=== PATIENT | female | born 1995 | race Caucasian/White ===

== ENCOUNTER 2018-08-25 12:57 | Inpatient (IN) | payer MEDICAID ==
[~2018-08-25] VITALS: Ht 167.6 cm; Wt 86.2 kg
[~2018-08-25 12:57] MED LIST: PREN-127 PO
[2018-08-29] MEDS ORDERED: FAMOTIDINE(*) 20MG/50ML PREMIX 50 ML IVPB PRN (05:36)
[2018-08-29] MEDS ORDERED: OXYTOCIN 30 UNIT/NS 500 ML 500 ML IV PRN ×2 (05:36)
[2018-08-29] MEDS ORDERED: LIDOCAINE/SOD BICARB 8.4% SYR SC PRN (05:40)
[2018-08-29] MEDS ORDERED: TERBUTALINE SULF 1 MG/ML VIAL SUBQ PRN (05:40)
[2018-08-29] MEDS ORDERED: CALCIUM CARBONATE 500 MG CHEW PO PRN (05:40)
[2018-08-29] MEDS ORDERED: ONDANSETRON 4 MG/2 ML VIAL IVP PRN (05:40)
[2018-08-29] MEDS ORDERED: cefOXitin/DEX(*) 2GM/50ML PREM 50 ML IVPB PRN (05:40)
[2018-08-29] MEDS ORDERED: ACETAMINOPHEN 500 MG TAB PO PRN (05:40)
[2018-08-29] MEDS ORDERED: METOCLOPRAMIDE 10 MG/2 ML SDV IVP PRN (05:40)
[2018-08-29] MEDS ORDERED: LIDOCAINE 1% LOCAL 300 MG/30ML INJ PRN (05:40)
[2018-08-29 06:30] VITALS: BP 143/87; Ht 167.6 cm; Wt 86.2 kg
[2018-08-29 06:39] LABS: PLATELET COUNT, AUTOMATED 304 K/uL (150-450)
[2018-08-29] MEDS: LR(*) 1000 ML BAG 1,000 ML IV SCH ×2 (06:40→11:53)
--- NOTE | 2018-08-29 08:42 | History & Physical ---
History of Present Illness Age of Patient: 22 : 1 Para or TPAL: 0 EDC per LMP: Aug 26, 2018 Estimated Gestational Age: 40.3 Chief Complaint IOL History of Present Illness Presents after her due date for planned IOL secondary to favorable cervix and post dates. Labor has been uncomplicated to date and she is healthy. No current issues. Past Medical, Surgical, Family and Obstetric Histories reviewed. Please see ACOG chart. History Allergies: Coded Allergies: No Known Drug Allergies (Unverified , 08/29/18) Med Rec Home Meds Reported Medications Vits W-Ca,Fe,Fa(<1MG) ( VITAMINS) 1 Each Tablet, 1 EACH PO DAILY, TAB 08/04/18 Review of Systems All Systems Reviewed/Normal: Yes, Except as Noted Exam General Exam Vital Signs Vital Signs Date Time Temp Pulse Resp B/P (MAP) Pulse Ox O2 Delivery O2 Flow Rate FiO2 08/29/18 06:30 98.2 100 16 143/87 (105) 95 Room Air General Apperance: Alert/Awake/No Acute Distress Neuro: No Gross deficits Cardiovascular: Regular Rate and Rhythm Respiratory: No Respiratory Distress Abdomen: Soft, Non-Tender, Non-Distended, Gravid - Non-Tender Integumentary: Skin Intact without Lesions or Rash Psychological: Alert & Oriented X3, Appropriate Mood & Affect Cervical Dialation: 3 Cervical Effacement (%): 80 Cervical Consistency: Moderate Cervical Position: Anterior Station: -2 Presentation: Vertex Fetus Heart Tone Variabilty: Moderate FHT Accelerations: 15X15 FHT Category: I Medical Decision Making Data Points Result Diagram: 08/29/18 0628 VTE Prophylasis: Adult Deep Vein Thrombosis/Pulmonary: No Pharmacological Contraindicati: Pt at Low Risk for VTE Mechanical Contraindications: Pt at Low Risk for VTE Assessment and Plan 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 Will alert PEDs to be present at delivery. Will advance Pitocin to adequate pattern and expecting . Planning on natural delivery. TAMAR CARPENTER MD Aug 29, 2018 08:42
[2018-08-29] MEDS: fentaNYL CITR 100 MCG/2 ML AMP IVP PRN ×2 (11:44→14:10)
--- NOTE | 2018-08-29 12:57 | Labor Progress Note ---
Labor Subjective Progress Notes Subjective has been doing well tolerating labor. Early decelerations but otherwise, category 1. 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
[2018-08-29] MEDS ORDERED: GLYCERIN/WITCH HAZEL LEAF 1 PK TP PRN (16:35)
[2018-08-29] MEDS ORDERED: LANOLIN OINT 7 GM TUBE TP PRN (16:35)
[2018-08-29] MEDS ORDERED: BENZOCAINE 20% 60 ML BTL TP PRN (16:35)
[2018-08-29] MEDS ORDERED: HYDROCORTISONE 2.5% CR 30GM TB PR PRN (16:35)
[2018-08-29] MEDS ORDERED: MAGNESIUM HYDROXIDE* 30ML UDCP PO PRN (16:35)
[2018-08-29] MEDS ORDERED: ACETAMINOPHEN 325 MG TAB PO PRN (16:35)
--- NOTE | 2018-08-29 16:46 | OB Delivery Note ---
Delivery Note Vaginal Delivery Type: Spont. Vaginal Delivery Delivery Date: Aug 29, 2018 Delivery Time: 16:17 Estimated Gestational Age(wks): 40.3 Delivery Anesthesia: Local Infant Sex: Male Weight (gms): 3810 Apgars: 1 Minute Repair Needed: Episiotomy-Midline, 2nd Degree Estimated Blood Loss: 300 Delivery Complications: Shoulder Dystocia (mild, resolved with Laureen positioning), Other (thick meconium) Notes: Presented for IOL at term and did well. Progressed from 3 cm to 5 cm by 1245. Rupture of membranes at 0822 with thick meconium staining. Episiotomy performed due to tearing near the clitoris. Second degree epis without extension. Head delivered in KARI position and mild shoulder dystocia noted and resolved with M cRoberts positioning. Remainder followed without difficulty. Baby resuscitated well and placenta delivered spontaneous and intact. Repair with 2-0 Chromic without complication. Local anesthetic used for analgesia. Scientific Associate in Attendence: Yes Copies to: TAMAR CARPENTER MD ; TAMAR CARPENTER MD Aug 29, 2018 16:46
[2018-08-29] MEDS ORDERED: IBUPROFEN 800 MG TAB PO SCH ×2 (17:00→18:00)
[2018-08-29] MEDS ORDERED: LIDOCAINE 1% LOCAL 300 MG/30ML 30 ML ONE (17:13)
[2018-08-29 19:18] VITALS: BP 122/60
[2018-08-29] MEDS: DOCUSATE CALCIUM 240 MG CAP PO SCH (21:40)
[2018-08-29 23:38] VITALS: BP 112/64
[2018-08-30] MEDS: APAP/HYDROCODONE 325/5 TAB PO PRN ×3 (02:21→16:09)
[2018-08-30] MEDS: IBUPROFEN 800 MG TAB PO SCH ×3 (03:07→18:37)
[2018-08-30 03:08] VITALS: BP 112/55
--- NOTE | 2018-08-30 08:17 | OB/GYN Progress Note ---
OB Subjective Progress Notes Subjective Feeling well; ambulating and tolerating regular diet. Voiding well and BM already. GI: NEG Nausea : Voiding Well Pain: Mild OB Objective Physical Exam Vital Signs Date Time Temp Pulse Resp B/P (MAP) Pulse Ox O2 Delivery O2 Flow Rate FiO2 08/30/18 03:08 97.5 81 16 112/55 (74) Room Air 08/29/18 06:30 95 Intake and Output 08/30/18 07:00 Intake Total 2530 ml Output Total 900 ml Balance 1630 ml Intake IV Total 2530 ml Output Urine Total 900 ml # Voids 3 General Appearance: Alert/Awake/No Acute Distress Neurological: No Gross deficits Cardiovascular: Normal Rhythm & Peripheral Pulses, Regular Rate and Rhythm Respiratory: No Respiratory Distress, Clear to Auscultation Abdomen: Soft, Non-Tender, Non-Distended, Fundus Firm, Non-Tender Integumentary: Skin Intact without Lesions or Rash Psychological: Alert & Oriented X3, Appropriate Mood & Affect Result Diagram: 08/30/18 0538 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
[2018-08-30 08:40] VITALS: BP 111/51
[2018-08-30] MEDS: DOCUSATE CALCIUM 240 MG CAP PO SCH ×2 (08:44→21:37)
[2018-08-30 13:09] VITALS: BP 112/60
[2018-08-30] MEDS ORDERED: DIPHTH/TETANUS/ACEL. PERTUSSIS IM ONLY ONE (16:35)
[2018-08-30] MEDS ORDERED: INFLUENZA VIRUS VAC 0.5ML SYR IM ONLY ONE (16:35)
[2018-08-30] MEDS ORDERED: MEASLES,MUMP,RUBELLA VAC 0.5ML SUBQ ONE (16:35)
[2018-08-30 16:55] VITALS: BP 126/67
[2018-08-30 20:17] VITALS: BP 139/63
[2018-08-30 23:47] VITALS: BP 117/87
[2018-08-31] MEDS: IBUPROFEN 800 MG TAB PO SCH (03:05)
[2018-08-31 05:51] VITALS: BP 98/57
[2018-08-31 08:20] VITALS: BP 115/67
[2018-08-31] MEDS: DOCUSATE CALCIUM 240 MG CAP PO SCH (09:07)
--- NOTE | 2018-08-31 09:11 | OB/GYN Progress Note ---
OB Subjective Progress Notes Subjective Feeling well. Pain controlled and voiding well. No problems and wants to go home. GI: NEG Nausea : Voiding Well Pain: Mild OB Objective Physical Exam Vital Signs Date Time Temp Pulse Resp B/P (MAP) Pulse Ox O2 Delivery O2 Flow Rate FiO2 08/31/18 08:20 97.7 91 18 115/67 (83) 08/31/18 05:51 Room Air 08/30/18 16:55 92 Intake and Output 08/31/18 06:59 Intake Total 360 ml Balance 360 ml Intake Oral 360 ml # Voids 1 # Bowel Movements 1 General Appearance: Alert/Awake/No Acute Distress Neurological: No Gross deficits Cardiovascular: Normal Rhythm & Peripheral Pulses, Regular Rate and Rhythm Respiratory: No Respiratory Distress, Clear to Auscultation Abdomen: Soft, Non-Tender, Non-Distended, Fundus Firm, Non-Tender Integumentary: Skin Intact without Lesions or Rash Psychological: Alert & Oriented X3, Appropriate Mood & Affect Result Diagram: 08/30/18 0538 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 F/U at 6 weeks. TAMAR CARPENTER MD Aug 31, 2018 09:10
[2018-08-31] MEDS ORDERED: IBUP800T37 PO (09:13)
--- NOTE | 2018-08-31 09:14 | OB/GYN Discharge Summary ---
Discharge Summary Reason for Hosp/Final Diag: (1) Postmaturity , 40-42 weeks gestation (2) care and examination immediately after delivery Hospital Course & Plan: Reviewed discharge instructions and precautions. F/U at 6 weeks. 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 Rogers [phone] Follow up in: 6 wks PP or PO Discharge Diet: As Tolerates Discharge Activity: As Tolerates, No Heavy Lifting x 6 wks, No Heavy Lifting > 10lb, Pelvic Rest Copies to: TAMAR ROGERS MD ; TAMAR ROGERS MD Aug 31, 2018 09:14
== END 2018-08-31 10:00 | disposition home or self-care (01) | DRG 807 ==
LOC: OB 08-29 05:32
PROVIDERS: ADMIT Obstetrics & Gynecology; ATTEND Obstetrics & Gynecology
PROC: 10E0XZZ Delivery of Products of Conception, External Approach (ICD-10-PCS; principal; 2018-08-29)
PROC: 0KQM0ZZ Repair Perineum Muscle, Open Approach (ICD-10-PCS; 2018-08-29)
PROC: 0W8NXZZ Division of Female Perineum, External Approach (ICD-10-PCS; 2018-08-29)
DX: O48.0 Post-term pregnancy (principal); Z37.0 Single live birth; O77.0 Labor and delivery complicated by meconium in amniotic fluid; O70.1 Second degree perineal laceration during delivery; O66.0 Obstructed labor due to shoulder dystocia; Z3A.40 40 weeks gestation of pregnancy
CPT/HCPCS: 36415; 85025; 85027; 86703; 86850; 86900; 86901; J2001; J2590; J3010; J7120